=== PATIENT | female | born 1985 ===

== ENCOUNTER 2018-02-09 23:36 | Emergency (ER) | payer OTHER ==
[2018-02-09 23:45] VITALS: TEMP 98.1; O2SAT 99
--- NOTE | 2018-02-10 00:09 | ED PDOC ---
HPI: Female Pain Time Seen by Provider: 02/10/18 00:00 Chief Complaint (Nursing): Female Genitourinary Chief Complaint (Provider): ; vaginal spotting History Per: Patient History/Exam Limitations: no limitations Onset/Duration Of Symptoms: Days (1) Current Symptoms Are (Timing): Still Present Additional Complaint(s): 33 y/o female, approximately 6 weeks gestation, presents for evaluation of vaginal spotting x 1 day. Denies fever, nausea/vomiting, chest pain, abdominal pain, urinary symptoms. No care thus far. A3 Past Medical History Reviewed: Historical Data, Nursing Documentation, Vital Signs Vital Signs: Last Vital Signs Temp 98.1 F 02/09/18 23:42 Pulse 83 02/09/18 23:42 Resp 18 02/09/18 23:42 BP 132/83 02/09/18 23:42 Pulse Ox 99 02/09/18 23:42 - Medical History PMH: Asthma - Surgical History Other surgeries: ectopic - Family History Family History: States: No Known Family Hx - Allergies Allergies/Adverse Reactions: Allergies Allergy/AdvReac Type Severity Reaction Status Date / Time No Known Allergies Allergy Verified 02/09/18 23:42 Review of Systems ROS Statement: Except As Marked, All Systems Reviewed And Found Negative Genitourinary Female: Positive for: Vaginal Bleeding Physical Exam - Reviewed Nursing Documentation Reviewed: Yes Vital Signs Reviewed: Yes - Physical Exam Appears: Positive for: Well, Non-toxic, No Acute Distress Head Exam: Positive for: ATRAUMATIC, NORMAL INSPECTION, NORMOCEPHALIC Skin: Positive for: Normal Color Eye Exam: Positive for: Normal appearance ENT: Positive for: Normal ENT Inspection Cardiovascular/Chest: Positive for: Regular Rate, Rhythm Respiratory: Positive for: Normal Breath Sounds Gastrointestinal/Abdominal: Positive for: Normal Exam Pelvic Exam: Positive for: Other (deferred) Back: Positive for: Normal Inspection Extremity: Positive for: Normal ROM Neurologic/Psych: Positive for: Alert, Oriented (x3) - ECG O2 Sat by Pulse Oximetry: 99 - Progress ED Course And Treament: EXAM: US , Transvaginal US Ovaries Duplex Arterial/Venous of the Pelvis, Complete CLINICAL HISTORY: 33 years old, female; Signs and symptoms; Lmp or gestational age (in weeks): ; Antepartum complications; Other: Spotting; ; Additional info: ; Vaginal spotting TECHNIQUE: Real-time transvaginal obstetrical ultrasound of the maternal pelvis and a first trimester with image documentation. Transvaginal imaging was used for better evaluation of the fetus and adnexa. 2 sets of ultrasound cine loop clips are submitted. Grayscale, color and spectral pulse Doppler images are submitted.A duplex/ doppler ultrasound was performed specifically BOTH COLOR FLOW AND spectral Doppler analysis (waveforms ) were performed and interpreted. COMPARISON: No relevant prior studies available. FINDINGS: Gestation: There is single intrauterine gestational sac with presence of yolk sac, pole The heart motion at the rate of 116 beats per minute. Estimated gestational age calculated from [place] rump length is estimated to be 6 weeks one days and gestational age calculated from mean sac diameter is 6 weeks 2 day. The sac measures 0.3 cm. Uterus/cervix: The cervix is closed and measures 3.9 cm. There is small anterior fundal fibroid measuring 1.6 x 1.1 x 1.1 cm. Ovaries: Left ovarian corpus luteum measuring 2.1 x 1.9 x 1.9 cm. The right ovary is not seen. The left ovary measures 3.3 x 2.8 x 2.9 cm. Duplex assessment demonstrates presence of color Doppler signal and spectral Doppler waveform in left ovary. Free fluid: No free fluid. IMPRESSION: 1. IUP as described. 2. Left ovarian corpus luteum measuring 2.1 x 1.9 x 1.9 cm. no torsion. Patient refusing labs and urine; states she has follow up appointment with her Die Hardener tomorrow. Advised to keep as scheduled Return precautions given Disposition - Clinical Impression Clinical Impression: Vaginal bleeding during , Ovarian cyst, Uterine fibroid - Patient ED Disposition Is Patient to be Admitted: No Counseled Patient/Family Regarding: Studies Performed, Diagnosis, Need For Followup - Disposition Referrals: Mateo Diaz MD [Primary Care Provider] - Disposition: Routine/Home Disposition Time: 01:52 Condition: STABLE Additional Instructions: You refused blood work (which includes checking blood type) and urine today Please follow up with your Die Hardener as scheduled for further evaluation Return to ED for worsening/concerning symptoms. Instructions: Bleeding With , Ovarian Cysts, Uterine Fibroids Forms: [employer] (Greenlandic)
[2018-02-10 03:32] VITALS: BP 113/75; PULSE 76; RESP 16
--- NOTE | 2018-02-10 13:29 | US ---
Date of service: 02/10/2018 PROCEDURE: OB Pelvic Ultrasound HISTORY: ; vaginal spotting COMPARISON: None available. FINDINGS: UTERUS: Single Live intrauterine gestation. CRL measures 0.5 cm equivalent to 6 weeks and 1 day gestatioin Gestational sac diameter measures 1.8 cm equivalent to 6 weeks and 2 days gestation age (Ultrasound estimated): 6 weeks and 2 days Date of delivery (Ultrasound estimated) : 10/04/2018 Heart rate: 116 bpm. Adele-gestational hemorrhage: None. Uterus measures 8.9 x 4.7 x 6.2 cm. There is a 1.6 x 1.1 x 1.1 cm anterior fundal fibroid. CERVIX: Long and closed. No cervical abnormality seen. RIGHT OVARY: Not visualized. LEFT OVARY: Measures 3.3 x 2.8 x 2.9 cm. No mass. Normal flow. There is a 2.1 x 1.9 x 1.9 cm corpus luteum cyst. FREE FLUID: None. OTHER FINDINGS: None. IMPRESSION: Single live intrauterine gestation with mean gestational age of 6 weeks and 2 days. The estimated date of delivery by ultrasound is 10/04/2018. The ultrasound dates correspond with the clinical dates. A preliminary report was provided by [employer] [facility].
== END 2018-02-10 02:15 | disposition home or self-care (01) ==
LOC: H.ER 23:36
DX: O20.9 Hemorrhage in early pregnancy, unspecified (principal); O34.11 Maternal care for benign tumor of corpus uteri, first trimester; O34.81 Maternal care for other abnormalities of pelvic organs, first trimester; N83.209 Unspecified ovarian cyst, unspecified side; Z3A.01 Less than 8 weeks gestation of pregnancy

== ENCOUNTER 2018-06-15 12:49 | Emergency (ER) | payer OTHER ==
[2018-06-15 12:56] VITALS: BP 134/78; PULSE 94; RESP 16; O2SAT 98
[2018-06-15 12:57] VITALS: TEMP 98.2
--- NOTE | 2018-06-15 12:58 | ED PDOC ---
HPI: Allergic Reaction Chief Complaint (Provider): facial itching History Per: Patient History/Exam Limitations: no limitations Additional Complaint(s): Virtual Initial Provider Note 33yo female currently 24wks developed facial itching, scratchy throat and left cheek swelling this morning. No other itch, rash or swelling to body. She denies new exposures to foods, soaps, clothes, etc. Denies abdominal pain, vaginal bleeding or back pain. Unremarkable thus far. OB: Zenaida <Cristopher Barahona III - Last Filed: 06/15/18 12:55> <Torres Juares - Last Filed: 06/15/18 15:52> Time Seen by Provider: 06/15/18 12:53 Chief Complaint (Nursing): Allergic Reaction Past Medical History Reviewed: Historical Data, Nursing Documentation, Vital Signs - Medical History PMH: Asthma - Surgical History Other surgeries: ectopic preg <Cristopher Barahona III - Last Filed: 06/15/18 12:55> Vital Signs: Last Vital Signs Temp 98.2 F 06/15/18 12:52 Pulse 94 H 06/15/18 12:52 Resp 16 06/15/18 12:52 BP 134/78 06/15/18 12:52 Pulse Ox 98 06/15/18 12:52 - Family History Family History: States: Unknown Family Hx <Torres Juares - Last Filed: 06/15/18 15:52> - Allergies Allergies/Adverse Reactions: Allergies Allergy/AdvReac Type Severity Reaction Status Date / Time No Known Allergies Allergy Verified 02/09/18 23:42 Review of Systems ROS Statement: Except As Marked, All Systems Reviewed And Found Negative Constitutional: Negative for: Fever Eyes: Negative for: Pain, Vision Change, Conjunctivae Inflammation, Eyelid Inflammation, Redness Cardiovascular: Negative for: Chest Pain Respiratory: Negative for: Cough Genitourinary Female: Negative for: Dysuria Musculoskeletal: Negative for: Neck Pain, Back Pain Skin: Positive for: Rash, Other (itch) Neurological: Negative for: Weakness, Numbness, Confusion Psych: Negative for: Suicidal ideation <Cristopher Barahona III - Last Filed: 06/15/18 12:55> Physical Exam - Reviewed Nursing Documentation Reviewed: Yes Vital Signs Reviewed: Yes - Physical Exam Appears: Positive for: Non-toxic Head Exam: Positive for: ATRAUMATIC Skin: Positive for: Warm, Dry. Negative for: Rash Eye Exam: Positive for: Normal appearance, Other (?facial edema L >R). Negative for: Periorbital swelling, Periorbital tenderness Respiratory: Negative for: Respiratory Distress <Cristopher Barahona III - Last Filed: 06/15/18 12:55> Disposition <Cristopher Barahona III - Last Filed: 06/15/18 12:55> - Patient ED Disposition Is Patient to be Admitted: No Doctor Will See Patient In The: Office Counseled Patient/Family Regarding: Studies Performed, Diagnosis, Need For Followup - Disposition Disposition: Routine/Home Disposition Time: 13:32 <Torres Juares - Last Filed: 06/15/18 15:52> - Clinical Impression Clinical Impression: Acute allergic reaction - Disposition Referrals: Wendi Estevez MD [Staff Provider] - Sean Marley MD [Medical Doctor] - Condition: STABLE Additional Instructions: Take no medications without permission from your OB (Dr Chepe Estevez) Instructions: Allergy Skin Testing Forms: [employer] (Swiss)
== END 2018-06-15 14:04 | disposition home or self-care (01) ==
LOC: H.ER 12:49
DX: T78.40XA Allergy, unspecified, initial encounter (principal); Z33.1 Pregnant state, incidental

== ENCOUNTER 2018-07-30 11:35 | Inpatient (IN) | payer OTHER ==
[2018-07-30 12:21] VITALS: BMI 39.9
[2018-07-30 13:23] LABS: BASO % 0.3 % (0.0-2.0); EOS # 0.2 K/uL (0.0-0.7); EOS % 2.4 % (0.0-4.0); LYMPH # 1.7 K/uL (1.0-4.3); LYMPH % 18.3 % (20.0-40.0); MEAN CELL VOLUME 86.7 fl (81.0-99.0); MEAN CORPUSCULAR HEMOGLOBIN 28.7 pg (27.0-31.0); MEAN CORPUSCULAR HGB CONC 33.1 g/dL (33.0-37.0); MEAN PLATELET VOLUME 9.8 fl (7.2-11.7); MONO # 0.5 K/uL (0.0-0.8); MONO % 5.4 % (0.0-10.0); NEUT # 6.8 K/uL (1.8-7.0); NEUT % 73.6 % (50.0-75.0); NRBC % 0.1 % (0.0-0.0); RBC 4.19 Mil/uL (3.80-5.20); RED CELL DISTRIBUTION WIDTH 13.6 % (11.5-14.5); WHITE BLOOD COUNT 9.2 K/uL (4.8-10.8)
[2018-07-30 13:33] LABS: SQUAMOUS EPITHIAL 1 /hpf (0-5); URINE BACTERIA RARE (<OCC); URINE BILIRUBIN NEGATIVE (NEGATIVE); URINE BLOOD NEGATIVE (NEGATIVE); URINE CLARITY SLIGHTY-CLOUDY (Clear); URINE COLOR YELLOW (YELLOW); URINE GLUCOSE (UA) NEG (NEGATIVE); URINE LEUKOCYTE ESTERASE NEG Leu/uL (Negative); URINE PROTEIN NEGATIVE (NEGATIVE); URINE UROBILINOGEN 0.2-1.0 mg/dL (0.2-1.0)
--- NOTE | 2018-07-30 14:35 | OBHP ---
Datetime: 07/30/2018 12:15 IP Adm Impression: , intrauterine ; No Active Labor; Intact Membranes IP Admit Plan: Admit to unit Admit Comment, IP Provider: 33yo c/o back pain since this morning. She states right side... raidating to side/donw leg. She took ylenol with some relief. She also has been on Macrobid for UTI and was swithched to Augmentin after a few days (UTI - GBS culture) POBH: TOP 2007 and 2010 Ectopic 2006 Spont ab 2016 PMH: scitaic pain thre times this preg - not referred to PT only tylenol Asthma UTI PSH: ectopic NKA PSoH: denies smoking ETOH drugs A: IUP at 31w back pain - pyelonephritis/UTI failed out pt therapy back pain - Hx sciatica PLAN: check las UA/C_S ID and PT consultation Conditoin eaplained to pt and her questions answered. Pelvic Type - PN: Adequate Extremities - PN: Normal Abdomen - PN: Normal Back - PN: Abnormal Lungs - PN: Normal Heart - PN: Normal Thyroid - PN: Normal Neurologic - PN: Normal HEENT - PN: Normal General - PN: Normal FHR - Baseline A Provider: 135 Membranes, Provider: Intact Contraction Comments Provider: none Comments, ACOG Physical Exam: In idstress due to back pain Back Right CVA tenderness/sciatc tenderness right - Positioned on her left side and externally rotate hip Pool Provider: Negative IP Hx Assessment: The History has been Reviewed and is Current EGA AdmitDate IP: 31.0 IP Chief Complaint: Other NICHD Variability Prov Fetus A: Moderate 6-25bpm NICHD Accel Fetus A IP Provider: 15X15 FHR Category Provider Fetus A: Category I NICHD Decel Fetus A IP Provider: None Dilatation, Provider: 0 Effacement, Provider: 0 Station, Provider: high Genitourinary Exam: Normal DTRs - PN: Normal
--- NOTE | 2018-07-30 16:07 | CP.PCM.PN ---
Subjective - Date & Time of Evaluation Date of Evaluation: 07/30/21 Time of Evaluation: 16:06 - Subjective Subjective: iI D CONSULT NOTE PATIENT EXAMINED ,HISTORY TAKEN,EMR REVIEWED ,INTRAUTERINE HAS HAD R SIDED BACK PAIN(HAS HISTORY OF DISC DISEASE(SCIATICA) SEEN BY PRIMARY PHYSICIAN & BECAUSE OF POLYURIA HAD URINE CULTURE DONE WHICH GREW STREP(HAS BEEN TREATED c MACROBID AND AUGMENTN SILL HAS SIGNIFICANT BACK PAIN RADIATING DOWN R SIDE TO ANKLE(THERE IS PAIN c PRESSURE) CUITURES TAKEN AND AWAITED US:WNL IMP 1.LUMBAR DISC ISSUE 2.UTI(DOUBT PYELONEPHRITIS) CONTINUE RX c CEFTRIAXONE 1GM IVPB Q24 FOLLOW CLINICALLY PHYSIOTHERAPY TO SEE Objective - Medications Medications: Current Medications Acetaminophen (Tylenol 325mg Tab) 650 mg PO Q4 PRN PRN Reason: Pain, moderate (4-7) - Labs Labs: 07/30/18 13:10
[2018-07-30 16:20] VITALS: RESP 20
[2018-07-30] MEDS ORDERED: Albuterol HFA 90 mcg/actuation (8 g) INH PRN ×2 (16:27→21:24)
--- NOTE | 2018-07-30 16:39 | US ---
Date of service: 07/30/2018 HISTORY: cervical length only COMPARISON: Not applicable. TECHNIQUE: Limited transabdominal transvaginal ultrasonography of was performed for evaluation of cervical length alone. FINDINGS: A single viable intrauterine gestation is identified. Cervical length measures 4.37 cm with closed internal and external os. presentation is cephalic with an anterior placenta and heart rate of 152 beats per minute. Study was requested only for measurement of cervical length. FREE FLUID: No significant free fluid noted. OTHER FINDINGS: None. IMPRESSION: Cervical length 4.37 cm.
[2018-07-31] MEDS ORDERED: Lidocaine 5% Patch TD PRN (08:34)
--- NOTE | 2018-07-31 09:37 | OBADHP ---
Datetime: 07/30/2018 12:15 Admit Comment, IP Provider: 33yo c/o back pain since this morning. She states right side... raidating to side/donw leg. She took ylenol with some relief. She also has been on Macrobid for UTI and was swithched to Augmentin after a few days (UTI - GBS culture) POBH: TOP 2007 and 2011 Ectopic 2006 Spont ab 2016 PMH: scitaic pain thre times this preg - not referred to PT only tylenol Asthma UTI PSH: ectopic NKA PSoH: denies smoking ETOH drugs A: IUP at 31w back pain - pyelonephritis/UTI failed out pt therapy back pain - Hx sciatica PLAN: check las UA/C_S ID and PT consultation Conditoin eaplained to pt and her questions answered. Pelvic Type - PN: Adequate Extremities - PN: Normal Abdomen - PN: Normal Back - PN: Abnormal Lungs - PN: Normal Heart - PN: Normal Thyroid - PN: Normal Neurologic - PN: Normal HEENT - PN: Normal General - PN: Normal FHR - Baseline A Provider: 135 Membranes, Provider: Intact Contraction Comments Provider: none Comments, ACOG Physical Exam: In idstress due to back pain Back Right CVA tenderness/sciatc tenderness right - Positioned on her left side and externally rotate hip Pool Provider: Negative IP Hx Assessment: The History has been Reviewed and is Current IP Chief Complaint: Other NICHD Variability Prov Fetus A: Moderate 6-25bpm NICHD Accel Fetus A IP Provider: [id number] FHR Category Provider Fetus A: Category I NICHD Decel Fetus A IP Provider: None Dilatation, Provider: 0 Effacement, Provider: 0 Station, Provider: high Genitourinary Exam: Normal DTRs - PN: Normal EGA AdmitDate IP: 31.0 IP Adm Impression: , intrauterine ; No Active Labor; Intact Membranes IP Admit Plan: Admit to unit
--- NOTE | 2018-07-31 09:38 | OBPN ---
Datetime: 07/31/2018 09:35 IP Progress Note Comment: Pain is more on butock area...to be seen by Anestheisa for pain management ..she was seen by ID (started Rocephin) and PT (cleared) Datetime: 07/30/2018 12:15 Pool Provider: Negative Membranes, Provider: Intact Contraction Comments Provider: none FHR - Baseline A Provider: 135 NICHD Accel Fetus A IP Provider: 15X15 FHR Category Provider Fetus A: Category I NICHD Variability Prov Fetus A: Moderate 6-25bpm Dilatation, Provider: 0 Effacement, Provider: 0 Station, Provider: high NICHD Decel Fetus A IP Provider: None
[2018-07-31] MEDS: Oxycodone/Acetaminophen 5/325 mg Tab PO PRN ×2 (13:06→17:46)
--- NOTE | 2018-07-31 19:24 | CP.PCM.CON ---
History of Present Illness - History of Present Illness History of Present Illness: 33 yo woman, 31-week , is referred for pain management. She's suffering from acute on chronic lower back pain which radiates down the right leg, this is associated with paresthesia. She had a previous episode of this, and is known to have a disc bulge, which resolved with PT and NSAIDs. Since admission, she's been ruled out for pyelonephritis and given Percocets for her pain, which helps mild to moderately and without side effects. All the possible options were discussed with her at length and she prefers to stay conservative in her treatment for now. Past Patient History - Past Social History Smoking Status: Never Smoked - CARDIAC Hx Cardiac Disorders: No - PULMONARY Hx Respiratory Disorders: Yes Hx Asthma: Yes - NEUROLOGICAL Hx Neurological Disorder: No - HEENT Hx HEENT Problems: No - RENAL Hx Chronic Kidney Disease: No - ENDOCRINE/METABOLIC Hx Endocrine Disorders: No - HEMATOLOGICAL/ONCOLOGICAL Hx Blood Disorders: No - INTEGUMENTARY Hx Dermatological Problems: No - MUSCULOSKELETAL/RHEUMATOLOGICAL Hx Musculoskeletal Disorders: No - GASTROINTESTINAL Hx Gastrointestinal Disorders: No - GENITOURINARY/GYNECOLOGICAL Hx Genitourinary Disorders: No - PSYCHIATRIC Hx Psychophysiologic Disorder: No Hx Substance Use: No - SURGICAL HISTORY Hx Surgeries: No Meds Allergies/Adverse Reactions: Allergies Allergy/AdvReac Type Severity Reaction Status Date / Time No Known Allergies Allergy Verified 02/09/18 23:42 - Medications Medications: Current Medications Acetaminophen (Tylenol 325mg Tab) 650 mg PO Q4 PRN PRN Reason: Pain, moderate (4-7) Last Admin: 07/31/18 05:39 Dose: 650 mg Albuterol (Ventolin Hfa 90 Mcg/Actuation (8 G)) 2 puff INH RQ6 PRN PRN Reason: Shortness of Breath Last Admin: 07/31/18 00:49 Dose: 2 puff Lidocaine (Lidoderm) 1 ea TD DAILY PRN PRN Reason: Pain, Mild (1-3) Last Admin: 07/31/18 09:38 Dose: 1 ea Oxycodone/Acetaminophen (Percocet 5/325 Mg Tab) 2 tab PO Q4 PRN PRN Reason: Pain, severe (8-10) Stop: 08/03/18 08:01 Last Admin: 07/31/18 17:46 Dose: 2 tab Physical Exam - Back Exam Back exam: paraspinal tenderness, vertebral tenderness - Neurological Exam Additional comments: Positive SLR on the right. Results - Vital Signs Recent Vital Signs: Last Vital Signs Temp 98.2 F 07/31/18 01:00 Pulse 89 07/31/18 01:00 Resp 20 07/31/18 01:00 BP 133/78 07/31/18 01:00 Pulse Ox - Labs Result Diagrams: 07/30/18 13:10 Assessment & Plan - Assessment and Plan (Free Text) Assessment: 33 yo woman 31-wk w/ likely lumbar radicular pain. - if cleared by ID and OB, could try Medrol Dospak x 1 for inflammation - PT, acupuncture, lumbar brace - Tylenol PRN for moderate pain, Percocet for severe pain - would suggest lumbar MRI if pain worsens and would then consider potential interventions - patient can follow up with me at pain clinic [phone]
[2018-08-01] MEDS: Oxycodone/Acetaminophen 5/325 mg Tab PO PRN (02:35)
[2018-08-01 19:38] VITALS: BP 126/81; PULSE 100; TEMP 98.4; O2SAT 99
== END 2018-08-01 12:36 | disposition home or self-care (01) | DRG 373 ==
LOC: H.EROB2 11:35 → H.L&D 12:24 → H.OB/GYN 15:30
PROVIDERS: ADMIT Obstetrics & Gynecology; ATTEND Obstetrics & Gynecology
PROC: 4A1HXCZ Monitoring of Products of Conception, Cardiac Rate, External Approach (ICD-10-PCS; principal; 2018-07-30)
DX: O23.43 Unspecified infection of urinary tract in pregnancy, third trimester (principal); B95.5 Unspecified streptococcus as the cause of diseases classified elsewhere; Z3A.31 31 weeks gestation of pregnancy; M54.16 Radiculopathy, lumbar region; G89.29 Other chronic pain

== ENCOUNTER 2018-09-22 10:54 | Inpatient (IN) | payer OTHER ==
[2018-09-22 11:20] VITALS: BMI 42.2
[2018-09-22] MEDS ORDERED: Lactated Ringer's 1,000 ML IV ONE (11:27)
[2018-09-22 12:08] LABS: BASO % 0.4 % (0.0-2.0); EOS % 0.4 % (0.0-4.0); HEMOGLOBIN 12.8 g/dL (12.0-16.0); LYMPH # 1.8 K/uL (1.0-4.3); LYMPH % 17.9 % (20.0-40.0); MEAN CELL VOLUME 84.2 fl (81.0-99.0); MEAN CORPUSCULAR HEMOGLOBIN 27.6 pg (27.0-31.0); MEAN CORPUSCULAR HGB CONC 32.8 g/dL (33.0-37.0); MEAN PLATELET VOLUME 10.7 fl (7.2-11.7); MONO # 0.9 K/uL (0.0-0.8); MONO % 8.6 % (0.0-10.0); NEUT # 7.3 K/uL (1.8-7.0); NEUT % 72.7 % (50.0-75.0); NRBC % 0.2 % (0.0-0.0); RBC 4.62 Mil/uL (3.80-5.20); RED CELL DISTRIBUTION WIDTH 14.6 % (11.5-14.5)
--- NOTE | 2018-09-22 14:01 | OBADHP ---
Datetime: 09/22/2018 11:30 Admit Comment, IP Provider: HPI: Purvi is a 33 year old who presents to D for IOL due to a finding of oligohydramnios this morning during a routine BPP. Her total TIARA was 3cm this morning, th ere were no individual values for each quadrant on the US. Patient denies ctx, LOF or vaginal bleedin g. Complications She was admitted to the hospital at 31 weeks for pyelonephritis History 1 ectopic in 2005, treated with open salingoophorectomy 3 SABs PMH Intermittent asthma PSH Salpingo-ooporectomy, R Medications PNV Albuterol PRN Allergies NKDA Social Denies tobacco, alcohol or drug use Family History Not significant PHYSICAL EXAM Vital reviewed labs: A+, antibody neg, Hep B neg, Rubella immune, HIV/RPR neg, GBS positive urine cultur e ASSESSMENT/PLAN: 33 year old here for IOL at 38.5 secondary to oligohydramnios - Patient will need GBS prophylaxis when she becomes active or ruptures - Plan to place cervidil for ripening since Escalante score is <6-8 - Fetus is vertex, anticipate vaginal delivery Plan discussed with attending, Dr. Allie Clay MD OB Fellow OB Hospitalist Addendum: Pt seen by me. Agree w/ above. 33 yo at 38+5 wks admitted for i nduction of labor for oligohydramios, TIARA 3. FHT reactive. GBS positive. Will start induction w/ C ervidil. Will start Penicillin for GBS prophylaxis when labor starts. (ES) Abdomen - PN: Normal Lungs - PN: Normal Heart - PN: Normal Neurologic - PN: Normal HEENT - PN: Normal General - PN: Normal Presentation-Admit: Vertex FHR - Baseline A Provider: 150 Membranes, Provider: Intact Contraction Comments Provider: None Gestation - Est Wks by US: 38.5 Vital Signs Provider: Reviewed; Within Normal Limits NICHD Variability Prov Fetus A: Moderate 6-25bpm NICHD Accel Fetus A IP Provider: [id number] NICHD Decel Fetus A IP Provider: None Dilatation, Provider: 0 Effacement, Provider: 40 Station, Provider: -3 IP Adm Impression: Term, intrauterine IP Admit Plan: Admit to unit; Initiate labor induction protocol Datetime: 07/30/2018 12:15 EGA AdmitDate IP: 31.0
[2018-09-22] MEDS: Lactated Ringer's 1,000 ML IV SCH ×2 (14:17→21:30)
[2018-09-22] MEDS ORDERED: Oxytocin 30 UNIT in NS 500 ml 30 UNITS/500 ML BAG IV ONE (19:19)
[2018-09-22] MEDS ORDERED: OXYTOCIN/0.9 % NS 20 UNIT/1,000 ML BAG IV SCH (19:30)
[2018-09-23] MEDS ORDERED: Lactated Ringer's 1,000 ML IV SCH (01:45)
[2018-09-23] MEDS ORDERED: Lactated Ringer's 1,000 ML IV ONE (01:50)
--- NOTE | 2018-09-23 02:40 | OBPN ---
Datetime: 09/23/2018 02:31 IP Progress Impression Other: Induction for oligohydramnios IP Procedures: Sterile Vag Exam IP Progress Plan: Induction Membranes, Provider: Intact FHR - Baseline A Provider: 140's IP Progress Note Comment: 33 yo at 38+6 wks for induction of labor for oligohydramnios s/p c ervidil Will start misoprostol around 0330 FHT reassuring, will start penicillin for GBS prophylaxis w/ labor Vital Signs Provider: Reviewed NICHD Accel Fetus A IP Provider: 15X15 FHR Category Provider Fetus A: Category I NICHD Variability Prov Fetus A: Moderate 6-25bpm Dilatation, Provider: 0 Effacement, Provider: 50 Station, Provider: -3 NICHD Decel Fetus A IP Provider: None Datetime: 09/22/2018 11:30 Contraction Comments Provider: None Gestation - Est Wks by US: 38.5 Presentation-Admit: Vertex
[2018-09-23] MEDS: Lactated Ringer's 1,000 ML IV SCH (03:23)
[2018-09-24] MEDS ORDERED: Lactated Ringer's 1,000 ML IV ONE (02:46)
[2018-09-24] MEDS ORDERED: Oxytocin 30 UNIT in NS 500 ml 30 UNITS/500 ML BAG IV ONE (03:00)
[2018-09-24] MEDS ORDERED: Bupivacaine HCl 0.25% PF (10 ml) Inj ONE (03:20)
[2018-09-24] MEDS ORDERED: Fentanyl/Bupivacaine HCl 250 ML EPI ONE (03:23)
[2018-09-24] MEDS: Lactated Ringer's 1,000 ML IV SCH ×2 (03:30→10:15)
[2018-09-24] MEDS ORDERED: Penicillin G 5 Million Unit Vial IVPB ONE (05:50)
--- NOTE | 2018-09-24 10:47 | OBPN ---
Datetime: 09/24/2018 09:41 IP Progress Impression: Normal progression of labor IP Informed Consent Obtain: Vaginal Delivery IP Procedures: Sterile Vag Exam IP Progress Plan: Continue present management Contraction Comments Provider: q 1-4 mins FHR - Baseline A Provider: 125 Presentation-Admit: Vertex IP Progress Note Comment: Patient evlauted, feeling some pressure, recently got epidural VE = 6/80/0 FHR = 125 mod ta, +accels, early decels TOCO = gabi q 1-3 mins, Pit @ 10mu/min A/P 1. Patient progressing well, now 6cm 2. Continue Pitocin for augmentation 3. CEFM and TOCO 4. Re-evaluate as needed Vital Signs Provider: Reviewed; Within Normal Limits NICHD Accel Fetus A IP Provider: 15X15 FHR Category Provider Fetus A: Category I NICHD Variability Prov Fetus A: Moderate 6-25bpm Dilatation, Provider: 6 Effacement, Provider: 80 Station, Provider: 0 NICHD Decel Fetus A IP Provider: Early
--- NOTE | 2018-09-24 12:29 | OBDS ---
DELIVERY PERSONNEL Delivery Doctor: Hellen Estevez MD Risk Investigator: MBorreoRN/Jonah GrimNC Resident: Dr Gokul Clay(OB Fwllow) MATERNAL INFORMATION Delivery Anesthesia: Epidural Medications in Delivery: Pitocin Placenta Cultured: No Provider Comments: 33 year old admitted at 38.5 for IOL secondary to oligohydramnios. Patient p rogressed to an at 39.0 weeks, baby delivered 11:21, live male infant, position KATE over intact perineum with epidural anesthesia. was placed on maternal abdomen and delayed cord clamping wa s performed. Apgars 9_9, no excessive resuscitation was required. No meconium, nuchal cord x1. Sponta neous delivery of placenta with 3-vessel cord. QBL 150cc. Mom and baby are in stable condition and wi ll be recovered in L_D. Attending, Dr. Estevez, was present for delivery. Nuha Clay MD OB Fellow LABOR SUMMARY EDC: 10/01/2018 00:00 No. Babies in Womb: 1 Attempted: No Labor Anesthesia: Epidural LABOR INFORMATION Reason for Induction: Oligohydramnios Onset of Labor: 09/24/2018 07:30 Complete Dilatation: 09/24/2018 11:04 Cervical Ripening Agents: Cytotec @ (Annotations: cytotec 50 mcg given PO 4th dose ) Oxytocin: Augmentation Group B Beta Strep: Positive Antibiotics # of Doses: Pen G 5 million units at 0500 Pen G 2.5 million units Antibiotics Time of Last Dose: 0500 and 1005 Steroids Given: None Reason Steroids Not Administered: Not Applicable MEMBRANES Membranes Rupture Method: Spontaneous Rupture of Membranes: 09/24/2018 10:45 Length of Rupture (hrs): -167.40 Amniotic Fluid Color: Bloody Amniotic Fluid Amount: Scant Amniotic Fluid Odor: Normal STAGES OF LABOR Stage 1 hrs: 3 Stage 1 min: 34 Stage 2 hrs: -167 Stage 2 min: -43 Stage 3 hrs: 168 Stage 3 min: 6 Total Time in Labor hrs: 3 Total Time in Labor min: 57 VAGINAL DELIVERY Episiotomy: None Laceration Extension: Second Degree Laceration Type: Perineal Laceration Repair: Yes Laceration Repair Note: A 2-0 Vicryl was used to repair the laceration in the usual fashion. Hemosta sis was adequate after repair. Initial Vag Sponge Count: Laps=5 with ring and 1 without ring Final Vag Sponge Count: laps=5 with ring and 1 without ring Initial Vag Sharps Count: 1 Final Vag Sharps Count: 1 Sponge Count Correct: Yes Sharps Count Correct: Yes Count Comment: Correct and acknowledge by Dr Velázquez(OB Fellow) BABY A INFORMATION Delivery Date/Time: 09/17/2018 11:21 Method of Delivery: Vaginal Born in Route : No : N/A Vacuum Extraction: N/A (Annotations: Data stored by [facility] on behalf of user) SHOULDER DYSTOCIA BABY A Infant Delivery Date/Time: 09/17/2018 11:21 PRESENTATION/POSITION BABY A Presentation: Cephalic Cephalic Presentation: Vertex Vertex Position: Left Occipital Anterior Breech Presentation: N/A PLACENTA INFORMATION BABY A Placenta Delivery Time : 09/24/2018 11:27 Placenta Method of Delivery: Spontaneous Placenta Status: Delivered SCORES BABY A Heart Rate 1 min: >100 bpm Resp Effort 1 min: Good Cry Reflex Irritability 1 min: Cough or Sneeze or Pulls Away Muscle Tone 1 min: Active Motion Color 1 min: Body [place], Extremities Blue Resuscitation Effort 1 min: Tactile Stimulation SCORE 1 MIN: 9 Heart Rate 5 min: >100 bpm Resp Effort 5 min: Good Cry Reflex Irritability 5 min: Cough or Sneeze or Pulls Away Muscle Tone 5 min: Active Motion Color 5 min: Body [place], Extremities Blue Resuscitation Effort 5 min: N/A SCORE 5 MIN: 9 INFANT INFORMATION BABY A Gestational Age at Delivery: 39.0 Gestational Status: Term Outcome : Liveborn Condition : Stable Infant Sex: Male IDENTIFICATION/MEDS BABY A ID Band Number: [id number] ID Band Location: Left Leg; Left Arm Vitamin K Given : Not Given Erythromycin Given: Not Given CORD INFORMATION BABY A No. Cord Vessels: 3 Nuchal Cord : Around Neck x1, Loose Nuchal Cord Other: n/a True Knot: n/a Infant Cord pH Baby Arterial: n/a Cord pH Baby Venous: n/a Cord Blood Taken: Yes Banking/Donate Info: n/a Suction: Mouth ASSESSMENT BABY A Infant Complications: None Physical Findings at Delivery: Within Normal Limits Respirations: Appears Normal Hotel Registration Clerk/ALS Called : No Infant Care By: Luis Transferred To: Remains with Mother
[2018-09-24] MEDS ORDERED: Benzocaine/Menthol SPRAY TOP PRN (16:36)
[2018-09-24] MEDS ORDERED: Oxycodone/Acetaminophen 5/325 mg Tab PO PRN ×2 (16:36)
--- NOTE | 2018-09-25 10:29 | OBPPN ---
Datetime: 09/25/2018 10:26 PP Pain Prov: Within normal limits PP Nausea Prov: Denies PP Flatus Prov: Yes PP Breasts Prov: Normal PP Heart Prov: Normal PP Lungs Prov: Normal PP Abdomen/Uterus Prov: Normal PP Lochia Prov: Normal PP Vulva/Perineum Prov: Normal PP CVA Tenderness Prov: Normal PP Extremities Prov: Normal PP Comments Phys Exam Prov: Fundus firm under umblicus PP Impression Prov: Normal progression PP Plan Prov: Continue present management PP Progress Note Prov: Patient denies CP, no SOB, no N/V tolerating PO diet, ambulating/voiding well , mild lochia, abdominal pain tolerable with meds A/P PPD #1 1. continue orders 2. Mortrin prn pain 3. Encouarge ambulation and IP PP Procedures: None Vital Signs Provider PP: Reviewed; Within Normal Limits
--- NOTE | 2018-09-26 12:45 | OBPPN ---
Datetime: 09/26/2018 12:42 PP Pain Prov: Within normal limits PP Nausea Prov: Denies PP Flatus Prov: Yes PP Breasts Prov: Normal PP Heart Prov: Normal PP Lungs Prov: Normal PP Abdomen/Uterus Prov: Normal PP Lochia Prov: Normal PP Vulva/Perineum Prov: Normal PP CVA Tenderness Prov: Normal PP Extremities Prov: Normal PP Comments Phys Exam Prov: Fundus firm under umbilicus PP Impression Prov: Normal progression PP Plan Prov: Continue present management; Discharge PP Progress Note Prov: Patient denies CP, no SOB, no N/V, tolerating PO diet, ambulating/voiding wel l, mild lochia, abdominal pain tolerable with meds A/P PPD #2 1. discharge home patient 2. discharge instructions reviewed IP PP Procedures: None Vital Signs Provider PP: Reviewed; Within Normal Limits
--- NOTE | 2018-09-26 12:45 | OBDCSUM ---
Datetime: 09/26/2018 12:43 Discharged to, Provider: Home Follow up at, Provider: OB Disch Instr Activity: Normal activity Disch Instr Diet: Regular Discharge Instructions, Provider: Routine instructions given Discharge Diagnosis, Provider: Term Delivered Discharge Time: 09/26/2018 12:43 Follow up in weeks, Provider: 6 wks Disch Referrals: None Contraception discussed, Prov: Yes
[2018-09-27 21:57] VITALS: BP 133/82; PULSE 89; RESP 20; TEMP 98.5; O2SAT 97
== END 2018-09-26 18:00 | disposition home or self-care (01) | DRG 373 ==
LOC: H.EROB2 10:54 → H.L&D 11:27 → H.OB/GYN 09-24 15:06
PROVIDERS: ADMIT Obstetrics & Gynecology; ATTEND Obstetrics & Gynecology
PROC: 4A1HXCZ Monitoring of Products of Conception, Cardiac Rate, External Approach (ICD-10-PCS; 2018-09-22)
PROC: 10E0XZZ Delivery of Products of Conception, External Approach (ICD-10-PCS; principal; 2018-09-24)
PROC: 0KQM0ZZ Repair Perineum Muscle, Open Approach (ICD-10-PCS; 2018-09-24)
DX: O41.03X0 Oligohydramnios, third trimester, not applicable or unspecified (principal); O99.824 Streptococcus B carrier state complicating childbirth; O70.1 Second degree perineal laceration during delivery; O69.81X0 Labor and delivery complicated by cord around neck, without compression, not applicable or unspecified; Z37.0 Single live birth; Z3A.39 39 weeks gestation of pregnancy; Z87.59 Personal history of other complications of pregnancy, childbirth and the puerperium; J45.20 Mild intermittent asthma, uncomplicated; O99.52 Diseases of the respiratory system complicating childbirth